=== PATIENT | female | born 1955 | race Caucasian/White ===

== ENCOUNTER 2018-09-22 07:36 | Emergency (ER) | payer MEDICAID ==
[~2018-09-22] VITALS: Ht 162.6 cm; Wt 94.3 kg
[2018-09-22 07:44] VITALS: Ht 162.6 cm; Wt 94.3 kg
[2018-09-22 08:56] VITALS: BP 125/90
== END 2018-09-22 08:57 | disposition home or self-care (01) ==
LOC: ED 07:36
DX: N39.0 Urinary tract infection, site not specified (principal); E66.9 Obesity, unspecified; Z68.35 Body mass index [BMI] 35.0-35.9, adult; Z98.890 Other specified postprocedural states